=== PATIENT | male | born 1955 | race Caucasian/White ===

== ENCOUNTER 2016-10-18 11:05 | Day surgery (SDC) | payer OTHER ==
[2016-10-18 11:45] VITALS: PULSE 56
[2016-10-18] MEDS ORDERED: LR 1,000 ML IV ONE (11:49)
[2016-10-18] MEDS ORDERED: LIDOCAINE 1% 2 ML INJ ID PRN (11:49)
--- NOTE | 2016-10-18 12:27 | PDANEPAE ---
ANE History of Present Illness hx of colon polyps ANE Past Medical History - Cardiovascular History Hx Hypertension: No Hx Arrhythmias: No Hx Chest Pain: No Hx Coronary Artery / Peripheral Vascular Disease: No Hx CHF / Valvular Disease: No Hx Palpitations: No - Pulmonary History Hx COPD: No Hx Asthma/Reactive Airway Disease: No Hx Recent Upper Respiratory Infection: No Hx Oxygen in Use at Home: No Hx Sleep Apnea: No Sleep Apnea Screening Result - Last Documented: Negative - Neurologic History Hx Cerebrovascular Accident: No Hx Seizures: No Hx Dementia: No - Endocrine History Hx Diabetes: No Hypothyroid: No - Renal History Hx Renal Disorders: No - Liver History Hx Hepatic Disorders: No - Neurological & Psychiatric Hx Hx Neurological and Psychiatric Disorders: No - Cancer History Hx Cancer: Yes Cancer History Comment: basal cell - Congenital Disorder History Hx Congenital Disorders: No - GI History GERD: mild (no medications) Hx Gastrointestinal Disorders: No - Other Health History Other Health History: loose teeth in front - Chronic Pain History Chronic Pain: No - Surgical History Prior Surgeries: toe surgeries. basal cell removed on face. colonoscopies ANE Review of Systems - Exercise capacity METS (RN): 4 METS ANE Patient History - Allergies Allergies/Adverse Reactions: prednisone Allergy (Verified 09/10/16 11:42) Vomiting - Home Medications Home medications: home medication list seen and reviewed Home Medications: Fish Oil 09/10/16 [Last Taken 10/10/16] VITAMIN D 09/10/16 [Last Taken 10/10/16] - NPO status NPO Since - Liquids (Date): 10/18/16 NPO Since - Liquids (Time): 04:00 NPO Since - Solids (Date): 10/16/16 NPO Since - Solids (Time): 19:00 - Anes Hx Anes Hx: no prior problems (IVGA vs GA for toe surgery) - Smoking Hx Smoking Status: Never smoked Marijuana use: No - Alcohol Use Alcohol Use: Other (one drink per day) - Family Anes Hx Family Anes Hx: none Family Hx Anesthesia Complications: none ANE Labs/Vital Signs - Vital Signs Blood Pressure: 141/84 Heart Rate: 56 Respiratory Rate: 12 O2 Sat (%): 94 Height: 182.88 cm Weight: 86.183 kg ANE Physical Exam - Airway Neck exam: FROM Mallampati Score: Class 1 Mouth exam: poor dentition (4 loose lower teeth,) - Pulmonary Pulmonary: clear to auscultation - Cardiovascular Cardiovascular: regular rate and rhythym - ASA Status ASA Status: II
[2016-10-18] MEDS ORDERED: MIDAZOLAM 2 MG/2 ML VIAL IVP ONE (12:28)
[2016-10-18] MEDS ORDERED: fentaNYL 100 MCG/2 ML INJ ONE (12:32)
[2016-10-18] MEDS ORDERED: PROPOFOL 200 MG/20 ML VIAL ONE ×2 (12:33)
[2016-10-18] MEDS ORDERED: MIDAZOLAM 2 MG/2 ML VIAL ONE (12:38)
--- NOTE | 2016-10-18 12:39 | PDGENHP ---
History & Physical Chief Complaint: phx polyps removed in piecemeal Pertinent Past, Social, Family History: hx polyps removed september 2015 in piecemeal. fhx on mothers side ?HNPCC - need [facility] Relevant Physical Exam: CTA, S1S2, RRR. A+Ox3. +BS, soft NT Cardiorespiratory Assessment: CTA, S1S2, RRR. class 1 pt
--- NOTE | 2016-10-18 13:30 | POSTOPPROG ---
Post Op Note Date of Operation: 10/18/16 Surgeon: Mark Caba Anesthesia: Other (Specify) (IV general as per Dr Zaman) Pre-op Diagnosis: phx polyps removed in piecemeal Post-op Diagnosis: poss residua polyp tisue at prev sites, cecal polyp prox tc polyp Indication: phx polyps Procedure: colon with snare, bx, apc Findings: cecal polyp tiny, prox tc polyp, prev ac sites Inf/Abcess present in the surg proc area at time of surgery?: No EBL: Minimal (few ml) Total fluids administered: 500 cc Complications: none immediate
[2016-10-18 13:46] VITALS: TEMP 97.9
[2016-10-18 14:01] VITALS: O2SAT 95
[2016-10-18 15:08] VITALS: BP 120/69; RESP 16
--- NOTE | 2016-10-18 16:28 | GPN ---
[f rep st] PROCEDURE NOTE DATE OF PROCEDURE: 10/18/2016 PROCEDURE: Colonoscopy with snare, argon plasma coagulation, and biopsy. INDICATIONS: Personal history of polyps removed 1 year ago with piecemeal resection of polyps in the ascending colon. PREOPERATIVE DIAGNOSIS: Rule out residual tissue, rule out new polyps. POSTOPERATIVE DIAGNOSES: 1. 2 mm to 3 mm cecal polyp, removed en toto by cold biopsy. 2. Proximal polyp site in ascending colon looked normal, status post biopsies. 3. The more mid ascending colon previous polypectomy site had some abnormal tissue, status post snare removal, biopsy, and then argon plasma coagulation destruction of any residual tissue. 4. 6 mm proximal transverse colon, removed en toto by cold snare piecemeal fashion. INFORMED CONSENT: I had a detailed discussion with the patient regarding the procedure, alternatives, benefits, and risks including bleeding, perforation, infection, reaction to medication. Informed consent was signed and witnessed. COMPLICATIONS: None immediate. MEDICATIONS USED: IV general per Dr. Zaman. DESCRIPTION OF PROCEDURE: After adequate sedation, patient remained in left lateral decubitus position. The visual and digital anorectal examination was performed. The video colonoscope was inserted in the rectum and advanced under direct visualization to the terminal ilium. The prep was very good. Upon withdrawal of the instrument, careful attention was paid to mucosal detail. On the way in, a 6 mm polyp was noted in the proximal transverse colon and removed by cold snare in piecemeal fashion. There was a 3 mm polyp in the cecum removed en toto by cold biopsy. The previous polypectomy site in the more proximal area of the ascending colon appeared normal with no residual tissue. I did take biopsies to make sure there was no residual polyp tissue. The more distal in the mid ascending colon previous polypectomy site did have some abnormal appearing tissue on it. Majority of this was removed en toto by cold snare, and then I biopsied remaining pieces. I then performed argon plasma coagulation destruction of this area to destroy any residual tissue. There were no other abnormalities noted on withdrawal. The patient tolerated the procedure well and was transferred to the recovery room in satisfactory condition. IMPRESSION: 1. Tiny cecal polyp. 2. No abnormal tissue on proximal previous polypectomy site in ascending colon. 3. Mild abnormal tissue on the distal ascending colon polypectomy site which is in the mid ascending colon. s/p snare, biopsy and Argon Plasma Coagulation. 4. Proximal transverse colon polyp removed en toto by cold snare in piecemeal fashion. RECOMMENDATIONS: 1. Follow up pathology of polyps. 2. Repeat colonoscopy in 6 months to 24 months depending on results of biopsies. If the previous polypectomy sites have no residual tissue, I will likely increase the interval to 2 years. 3. I will have my office send him a family history questionnaire to fill out as there is significant family history on his mother's side. Possible HNPCC. 4. Until the [facility] evaluates his family history, his intervals should be no longer than 2 years. 5. High fiber, high fluid diet. 6. Except as used as cardiac or stroke prevention, avoid aspirin, nonsteroidal anti-inflammatory drugs for 7-10 days. 7. Follow up with primary care physician as scheduled. Thank you for allowing me to participate in patient's healthcare. Do not hesitate to call me with any questions. /[id number]/MODL MTDD
== END 2016-10-18 15:06 | disposition home or self-care (01) ==
LOC: FSGY 11:05
PROVIDERS: ATTEND Internal Medicine Gastroenterology
PROC: 0DBK8ZX Excision of Ascending Colon, Via Natural or Artificial Opening Endoscopic, Diagnostic (ICD-10-PCS; principal; 2016-10-18 12:15)
PROC: 0DBH8ZX Excision of Cecum, Via Natural or Artificial Opening Endoscopic, Diagnostic (ICD-10-PCS; principal; 2016-10-18 12:15)
PROC: 0D5E8ZZ Destruction of Large Intestine, Via Natural or Artificial Opening Endoscopic (ICD-10-PCS; principal; 2016-10-18 12:15)
PROC: 0DBL8ZX Excision of Transverse Colon, Via Natural or Artificial Opening Endoscopic, Diagnostic (ICD-10-PCS; principal; 2016-10-18 12:15)
DX: K63.5 Polyp of colon (principal)
CPT/HCPCS: J2250; J2704; J3010

== ENCOUNTER 2017-06-11 10:37 | Day surgery (SDC) | payer OTHER ==
[2017-06-11] MEDS ORDERED: LR 1,000 ML IV ONE (11:11)
--- NOTE | 2017-06-11 12:42 | PDANEPAE ---
ANE History of Present Illness here for follow up colonoscopy ANE Past Medical History - Cardiovascular History Hx Hypertension: No Hx Arrhythmias: No Hx Chest Pain: No Hx Coronary Artery / Peripheral Vascular Disease: No Hx CHF / Valvular Disease: No Hx Palpitations: No - Pulmonary History Hx COPD: No Hx Asthma/Reactive Airway Disease: No Hx Recent Upper Respiratory Infection: No Hx Oxygen in Use at Home: No Hx Sleep Apnea: No Sleep Apnea Screening Result - Last Documented: Negative - Neurologic History Hx Cerebrovascular Accident: No Hx Seizures: No Hx Dementia: No - Endocrine History Hx Diabetes: No - Renal History Hx Renal Disorders: No - Liver History Hx Hepatic Disorders: No - Neurological & Psychiatric Hx Hx Neurological and Psychiatric Disorders: No - Cancer History Hx Cancer: Yes Cancer History Comment: basal cell - Congenital Disorder History Hx Congenital Disorders: No - GI History Hx Gastrointestinal Disorders: No Gastrointestinal History Comment: polyps - Other Health History Other Health History: loose teeth in front bottom - Chronic Pain History Chronic Pain: No - Surgical History Prior Surgeries: toe surgeries. basal cell removed on face. colonoscopies ANE Review of Systems Review of Systems: - Exercise capacity METS (RN): 5 METS ANE Patient History - Allergies Allergies/Adverse Reactions: prednisone Allergy (Mild, Verified 06/11/17 11:12) Vomiting - Home Medications Home Medications: Fish Oil 09/10/16 [Last Taken 06/09/17] VITAMIN D 09/10/16 [Last Taken 06/09/17] - NPO status NPO Since - Liquids (Date): 06/11/17 NPO Since - Liquids (Time): 01:30 NPO Since - Solids (Date): 06/09/17 NPO Since - Solids (Time): 18:00 - Anes Hx Anes Hx: no prior problems - Smoking Hx Smoking Status: Never smoked - Alcohol Use Alcohol Use: Rarely - Family Anes Hx Family Anes Hx: none Family Hx Anesthesia Complications: none ANE Labs/Vital Signs - Vital Signs Blood Pressure: 139/83 Heart Rate: 58 Respiratory Rate: 16 O2 Sat (%): 96 Height: 182.88 cm Weight: 83.915 kg ANE Physical Exam - Airway Neck exam: FROM Mallampati Score: Class 2 Mouth exam: normal dental/mouth exam - Pulmonary Pulmonary: no respiratory distress, clear to auscultation - Cardiovascular Cardiovascular: regular rate and rhythym, no murmur, rub, or gallop - ASA Status ASA Status: II ANE Anesthesia Plan Anesthesia Plan: GA with mask Total IV Anesthesia: Yes
[2017-06-11] MEDS ORDERED: PROPOFOL/EMULSION 500 MG/50 ML BOTTLE IV ONE (12:49)
--- NOTE | 2017-06-11 12:50 | PDGENHP ---
History & Physical Chief Complaint: ph polyps History of Present Illness: phx polyps Pertinent Past, Social, Family History: no tobacco, occ alcohol, fhx - uncle colon cancer Relevant Physical Exam: A+Ox3. CTA. S1S2, RRR. +BS, soft Cardiorespiratory Assessment: class 1
--- NOTE | 2017-06-11 13:33 | POSTOPPROG ---
Post Op Note Date of Operation: 06/11/17 Surgeon: Mark Caba Anesthesiologist: Odilon Moraes MD Anesthesia: Other (Specify) (IV general) Pre-op Diagnosis: phx polyps Post-op Diagnosis: polyp, previous sites look fine Indication: phx polyps Procedure: colon and snare Findings: small distal tranverse polyp Inf/Abcess present in the surg proc area at time of surgery?: No EBL: Minimal (few ml only) Total fluids administered: 100ml LR Complications: none immediate
[2017-06-11] MEDS ORDERED: NALOXONE HCL 0.4 MG/ML INJ IVP PRN (13:37)
--- NOTE | 2017-06-11 13:38 | POSTANESTH ---
Post Anesthetic Evaluation Cardiovascular Status: Normal, Stable, Similar to Pre-Op Cond Respiratory Status: Normal, Stable, Similar to Pre-op Cond. Level of Consciousness/Mental Status: Can Participate in Eval, Alert and Oriented Pain Control: Adequate, Prn Tx Ordered Nausea/Vomiting Control: Adequate, Prn Tx Ordered Complications Possibly Related to Anesthesia: None Noted
--- NOTE | 2017-06-11 13:40 | GIREPORT ---
[facility] - Endoscopy Department Patient Name: Baron Vora Procedure Date: 06/11/2017 12:41 PM Patient Type: Outpatient Attending MD/ ER Physician: Radha Patterson Procedure: Colonoscopy Indications: Surveillance: History of piecemeal removal adenoma on last colonoscopy (< 3 yrs), High risk colon cancer surveillance: Personal history of adenoma (10 mm or greater in size) Providers: Sarbjit Caba MD Medicines: Sedation Required Anesthesia Staff Assistance = IV general Complications: No immediate complications. Estimated blood loss: Minimal. Description of Procedure: After obtaining informed consent, the scope was passed under direct vis ion. Throughout the procedure, the patient's blood pressure, pulse, and oxyg en saturations were monitored continuously. The Colonoscope was introduced through the anus and advanced to the terminal ileum, with identificatio n of the appendiceal orifice and IC valve. The colonoscopy was performed wit hout difficulty. The patient tolerated the procedure well. The quality of e bowel preparation was good. Findings: The digital rectal exam was normal. The terminal ileum appeared normal. A post polypectomy scar was found in the ascending colon. The scar tiss ue was healthy in appearance. There was no evidence of the previous polyp. A post polypectomy scar was found in the distal ascending colon. The sc ar tissue was healthy in appearance. There was no evidence of the previous polyp. A 6 mm polyp was found in the distal transverse colon. The polyp was semi-sessile. The polyp was removed with a cold snare. Resection and retrieval were complete. Estimated blood loss was minimal. Photo is pos t polypectomy The exam was otherwise without abnormality. Estimated Blood Loss: Estimated blood loss was minimal. Post Op Diagnosis: - The examined portion of the ileum was normal. - Post-polypectomy scar in the ascending colon. - Post-polypectomy scar in the distal ascending colon. - One 6 mm polyp in the distal transverse colon, removed with a cold sn are. Resected and retrieved. - The examination was otherwise normal. Recommendation: - Await pathology results. - My office will call with the pathology result with 5-7 days. If you h ave not heard from my office by 1214, do not assume the pathology is fartun l, please call [phone] to get the pathology results. - Repeat colonoscopy in 2 years for surveillance. - Resume previous diet. - Patient has a contact number available for emergencies. The signs and symptoms of potential delayed complications were discussed with the pat ient. Return to normal activities tomorrow. Written discharge instructions we re provided to the patient. - Continue present medications. - Discharge patient to home (ambulatory). - Return to primary care physician as previously scheduled. - Thank you for allowing me to help in your patient's care. Do not hesi pineda to call with any questions. Attending Participation: I personally performed the entire procedure. Rosales Schaffer M.D Sarbjit Caba MD 06/11/2017 1:39:46 PM This report has been signed electronicallyMathew MD Rosales Number of Addenda: 0 Note Initiated On: 06/11/2017 12:41 PM Total Procedure Duration Time 0 hours 21 minutes 32 seconds [email or web address]
[2017-06-11 14:01] VITALS: TEMP 98.2
[2017-06-11 14:18] VITALS: BP 108/75; PULSE 60; RESP 14; O2SAT 95
== END 2017-06-11 15:00 | disposition home or self-care (01) ==
LOC: FSGY 10:37
PROVIDERS: ATTEND Internal Medicine Gastroenterology
PROC: 0DBL8ZX Excision of Transverse Colon, Via Natural or Artificial Opening Endoscopic, Diagnostic (ICD-10-PCS; principal; 2017-06-11 12:45)
DX: Z09 Encounter for follow-up examination after completed treatment for conditions other than malignant neoplasm (principal); K63.5 Polyp of colon; Z86.010 Personal history of colon polyps
CPT/HCPCS: J2704